=== PATIENT | male | born 1965 | race Caucasian/White ===

== ENCOUNTER 2024-01-10 13:29 | Outpatient (CLI) | payer BC, SELFPAY | END 2024-01-10 13:30 | disposition home or self-care (01) | PROVIDERS: PCP Family Medicine; Visit Provider Family Medicine | DX: Z12.5 Encounter for screening for malignant neoplasm of prostate (principal); E78.5 Hyperlipidemia, unspecified; I10 Essential (primary) hypertension; E03.9 Hypothyroidism, unspecified | CPT/HCPCS: 80048; 84443; G0103 ==

== ENCOUNTER 2025-02-01 09:50 | Outpatient (CLI) | payer BC, SELFPAY | END 2025-02-01 09:51 | disposition home or self-care (01) | LOC: NFLDREF 02-02 08:07 | PROVIDERS: PCP Family Medicine; Referring Provider Family Medicine; Visit Provider Family Medicine | DX: E78.5 Hyperlipidemia, unspecified (principal); E03.9 Hypothyroidism, unspecified; I10 Essential (primary) hypertension | CPT/HCPCS: 80053; 80061; 84443 ==

== ENCOUNTER 2025-03-07 09:46 | Outpatient (CLI) | payer BC, SELFPAY ==
--- NOTE | 2025-03-07 11:21 | P.ANES_ITS ---
Anesthesia Charges Start Date/Time Anesthesia Start Date: 03/07/25 Anesthesia Start Time: 10:55 Stop Date/Time Anesthesia Stop Date: 03/07/25 Anesthesia Stop Time: 11:20 Coding CPT Codes CPT Codes: PRADIP LWR INTST SCR COLSC - 73923 ([id number]) P2 - PATIENT W/MILD SYST DISEASE, QX - HIGH RIGGER SVC W/ MD MED DIRECTION, QK - POST HOLE DIGGER 2-4 CNCRNT ANES PROC
--- NOTE | 2025-03-07 11:21 | W.ANESCHARGE ---
Anesthesia Charges Start Date/Time Anesthesia Start Date: 03/07/25 Anesthesia Start Time: 10:55 Stop Date/Time Anesthesia Stop Date: 03/07/25 Anesthesia Stop Time: 11:20 Coding CPT Codes CPT Codes: PRADIP LWR INTST SCR COLSC - 15017 ([id number]) P2 - PATIENT W/MILD SYST DISEASE, QX - STOCK PATCH SAWYER SVC W/ MD MED DIRECTION, QK - BULLET SWAGING MACHINE ADJUSTER 2-4 CNCRNT ANES PROC
--- NOTE | 2025-03-07 11:24 | P.ANES_ITS ---
Anesthesia Charges Start Date/Time Anesthesia Start Date: 03/07/25 Anesthesia Start Time: 10:55 Stop Date/Time Anesthesia Stop Date: 03/07/25 Anesthesia Stop Time: 11:20 Coding CPT Codes CPT Codes: PRADIP LWR INTST SCR COLSC - [id number] ([id number]) QK - DERRICK HAND 2-4 CNCRNT PRADIP PROC, QX - CERTIFIED OPTICIAN SVC W/ MD MED DIRECTION, P2 - PATIENT W/MILD SYST DISEASE
--- NOTE | 2025-03-07 11:24 | W.ANESCHARGE ---
Anesthesia Charges Start Date/Time Anesthesia Start Date: 03/07/25 Anesthesia Start Time: 10:55 Stop Date/Time Anesthesia Stop Date: 03/07/25 Anesthesia Stop Time: 11:20 Coding CPT Codes CPT Codes: PRADIP LWR INTST SCR COLSC - 88132 ([id number]) QK - CERAMIC PAINTER 2-4 CNCRNT PRADIP PROC, QX - GARMENT FITTER SVC W/ MD MED DIRECTION, P2 - PATIENT W/MILD SYST DISEASE
== END 2025-03-07 09:47 | disposition home or self-care (01) ==
LOC: OP CLINIC 09:48
PROVIDERS: PCP Family Medicine; Visit Provider Surgery
DX: Z12.11 Encounter for screening for malignant neoplasm of colon (principal); K57.30 Diverticulosis of large intestine without perforation or abscess without bleeding
CPT/HCPCS: 00812; 45378; J2704